=== PATIENT | female | born 1955 | race Two or more races ===

== ENCOUNTER 2018-12-03 13:28 | Emergency (ER) | payer OTHER ==
[2018-12-03 13:40] VITALS: BP 129/69; PULSE 64; TEMP 98.5; BMI 31.1
[2018-12-03] MEDS ORDERED: KETOROLAC TROMETHAMINE 60 MG/2 ML VIAL IM ONE (14:09)
--- NOTE | 2018-12-03 14:12 | PDOC ---
History of Present Illness - General Chief Complaint: Back Pain Stated Complaint: BACK PAIN Time Seen by Provider: 12/03/18 14:02 - History of Present Illness Initial Comments: 12/03/18 14:10 63-year-old female with lower back pain with left posterior lateral leg radiculopathy to the level of her knee without loss of bowel or bladder function or systemic symptoms 3 days. Past History - Past Medical History Allergies/Adverse Reactions: Allergies Allergy/AdvReac Type Severity Reaction Status Date / Time No Known Allergies Allergy Verified 12/03/18 14:05 Home Medications: Ambulatory Orders Cyclobenzaprine HCl [Flexeril 10 mg] 10 mg PO HS PRN #10 tablet 12/03/18 Methylprednisolone [Medrol Dose Benji] 4 mg PO ASDIR #21 tablet 12/03/18 COPD: No - Immunization History Immunization Up to Date: Yes - Suicide/Smoking/Psychosocial Hx Smoking History: Never smoked Information on smoking cessation initiated: No Hx Alcohol Use: No Drug/Substance Use Hx: No Review of Systems - Review of Systems Constitutional: No: Fever Musculoskeletal: Yes: Back Pain *Physical Exam - Vital Signs Last Vital Signs Temp Pulse Resp BP Pulse Ox 98.5 F 64 16 129/69 100 12/03/18 13:37 12/03/18 13:37 12/03/18 13:37 12/03/18 13:37 12/03/18 13:37 - Physical Exam Comments: 12/03/18 14:10 Lumbar spine skin color and temperature are normal range of motion is limited. There is a well-healed right-sided midline incision from a prior discectomy. 5 out of 5 strength in bilateral lower extremities without gross sensorimotor deficits positive straight leg raise test on the left negative on the right thighs and calves are soft and nontender. She is neurovascularly intact. Moderate Sedation - Procedure Monitoring Vital Signs: Procedure Monitoring Vital Signs Temperature 98.5 F 12/03/18 13:37 Pulse Rate 64 12/03/18 13:37 Respiratory Rate 16 12/03/18 13:37 Blood Pressure 129/69 12/03/18 13:37 O2 Sat by Pulse Oximetry (%) 100 12/03/18 13:37 *DC/Admit/Observation/Transfer Diagnosis at time of Disposition: Lumbar radiculopathy - Discharge Dispostion Disposition: HOME Condition at time of disposition: Improved Decision to Admit order: No - Prescriptions Prescriptions: Cyclobenzaprine HCl [Flexeril 10 mg] 10 mg PO HS PRN #10 tablet PRN Reason: Muscle Spasms Methylprednisolone [Medrol Dose Benji] 4 mg PO ASDIR #21 tablet - Referrals Referrals: Fabricio Mcpherson MD [Staff Physician] - - Patient Instructions Printed Discharge Instructions: Lumbar Radiculopathy, DI for Lumbar Radiculopathy Additional Instructions: Please take the steroid as directed. Do not take any anti-inflammatory such as Advil Motrin Aleve or ibuprofen while on the steroid pack. The muscle relaxers one tablet at nighttime before bed and will make you sleepy. Follow-up with spine surgery in 2-3 days for further evaluation and treatment options and return to the emergency room should symptoms worsen or go unresolved. - Post Discharge Activity
[2018-12-03] MEDS ORDERED: KETOROLAC TROMETHAMINE 60 MG/2 ML VIAL ONE (14:16)
== END 2018-12-03 14:22 | disposition home or self-care (01) ==
LOC: JERFT 13:28
PROC: 3E0233Z Introduction of Anti-inflammatory into Muscle, Percutaneous Approach (ICD-10-PCS; principal; 2018-12-03)
DX: M54.16 Radiculopathy, lumbar region (principal)
CPT/HCPCS: 99281-25

== ENCOUNTER 2018-12-05 12:02 | Emergency (ER) | payer OTHER ==
[2018-12-05 12:07] VITALS: BP 121/66; PULSE 82; TEMP 97.9; BMI 32.0
[2018-12-05 14:00] LABS: URINE APPEARANCE CLEAR; URINE BILIRUBIN NEGATIVE (<2.0 mg/dL); URINE COLOR YELLOW; URINE GLUCOSE (UA) NEGATIVE (NEGATIVE); URINE KETONE NEGATIVE (NEGATIVE); URINE LEUK ESTERASE TRACE (NEGATIVE); URINE NITRITE NEGATIVE (NEGATIVE); URINE PROTEIN NEGATIVE (NEGATIVE); URINE UROBILINOGEN NEGATIVE mg/dL (0.2-1.0)
--- NOTE | 2018-12-05 14:21 | PDOC ---
History of Present Illness - General Chief Complaint: Back Pain Stated Complaint: REVISIT, BACK PAIN Time Seen by Provider: 12/05/18 12:59 History Source: Patient - History of Present Illness Initial Comments: 12/05/18 14:28 63-year-old female complaining of lower back pain with pain radiating down to the left leg. Patient reports that in 2003 she had surgery for pinched nerve. Patient was seen in this ER 2 days ago for same complain report that the Medrol dosepak is not helping. Patient is not unable to get an orthopedic appointment until December 26. Patient denies saddle anesthesia, numbness or tingling to down to the lower extremity, incontinence of bowel and urine. Past History - Past Medical History Allergies/Adverse Reactions: Allergies Allergy/AdvReac Type Severity Reaction Status Date / Time No Known Allergies Allergy Verified 12/05/18 12:04 Home Medications: Ambulatory Orders Methylprednisolone [Medrol Dose Benji] 4 mg PO ASDIR 12/05/18 Oxycodone HCl/Acetaminophen [Percocet 5-325 mg Tablet] 1 tab PO Q6H PRN #12 tablet MDD 4 12/05/18 COPD: No - Immunization History Immunization Up to Date: Yes - Suicide/Smoking/Psychosocial Hx Smoking History: Never smoked Hx Alcohol Use: No Drug/Substance Use Hx: No Review of Systems - Review of Systems Able to Perform ROS?: Yes Is the patient limited Kinyarwanda proficient: No Constitutional: No: Symptoms Reported, See HPI, Chills, Diaphoresis, Fever, Loss of Appetite, Malaise, Night Sweats, Weakness, Weight Stable, Unintentional Wgt. Loss, Unexplained wgt Loss, Other Musculoskeletal: Yes: Back Pain *Physical Exam - Vital Signs Last Vital Signs Temp Pulse Resp BP Pulse Ox 97.9 F 82 18 121/66 98 12/05/18 12:04 12/05/18 12:04 12/05/18 12:04 12/05/18 12:04 12/05/18 12:04 - Physical Exam General Appearance: Yes: Appropriately Dressed Musculoskeletal: positive: Vertebral Tenderness (lumbar area tendernes) Moderate Sedation - Procedure Monitoring Vital Signs: Procedure Monitoring Vital Signs Temperature 97.9 F 12/05/18 12:04 Pulse Rate 82 12/05/18 12:04 Respiratory Rate 18 12/05/18 12:04 Blood Pressure 121/66 12/05/18 12:04 O2 Sat by Pulse Oximetry (%) 98 12/05/18 12:04 ED Treatment Course - RADIOLOGY Radiograph Interpretation: 12/05/18 14:32 CT lumbar spine: No definite compression fracture or subluxation are identified. L3-L4 mild right paracentral/lateral disc bulge with posterior spur formation slightly narrowly the right foramen without gross nerve root placement. L4-L5 moderate degenerative disc disease with mild disc bulge reaching the right L4 nerve root without definite impingement. L5-S1 moderate degenerative disc disease with mild mainly left paracentral lateral disc bulge reaching the left L5 nerve root without definite impingement. Correlate clinically and if needed correlation with nonemergent MRI of the lumbar spine would be more sensitive for further evaluation " *DC/Admit/Observation/Transfer Diagnosis at time of Disposition: Lumbar radiculopathy - Discharge Dispostion Disposition: HOME - Prescriptions Prescriptions: Oxycodone HCl/Acetaminophen [Percocet 5-325 mg Tablet] 1 tab PO Q6H PRN #12 tablet MDD 4 PRN Reason: Back Pain - Referrals Referrals: Adria Lombardi MD [Primary Care Provider] - Tariq Stuart MD, FAANS [Staff Physician] - 24 hours Dago Sands MD [Staff Physician] - 24 hours - Patient Instructions Printed Discharge Instructions: Low Back Pain Additional Instructions: take percocet as prescribed. take medrol dose pack as prescribed. follow up with neursurgery / orthopedic as soon as possible. - Post Discharge Activity Forms/Work/School Notes: Back to Work
[2018-12-05 14:47] LABS: EPI CELLS RARE /HPF (FEW)
== END 2018-12-05 14:43 | disposition home or self-care (01) ==
LOC: JERFT 12:02
DX: M54.16 Radiculopathy, lumbar region (principal)
CPT/HCPCS: 72131-TC; 81003; 81015; 99281-25

== ENCOUNTER 2019-04-01 14:52 | Emergency (ER) | payer OTHER ==
--- NOTE | 2019-04-01 14:59 | PDOC ---
Rapid Medical Evaluation Time Seen by Provider: 04/01/19 14:56 Medical Evaluation: Allergies Allergy/AdvReac Type Severity Reaction Status Date / Time No Known Allergies Allergy Verified 12/05/18 12:04 04/01/19 14:56 I have performed a brief in-person evaluation of this patient. The patient presents with a chief complaint of:vertigo and nausea after sitting up in bed this am, improved. No PALACIOS, visual changes, focal weakness, CP or SOB. H /o GERD Pertinent physical exam findings:stable and in NAD, non-focal I have ordered the following:labs/ekg The patient will proceed to the ED for further evaluation. Discharge Disposition - Diagnosis Dizziness - Referrals - Patient Instructions - Post Discharge Activity
[2019-04-01 15:02] VITALS: TEMP 97.7; BMI 30.8
[2019-04-01] MEDS ORDERED: MECLIZINE HCL 25 MG TABLET (FP) PO ONE (15:37)
[2019-04-01] MEDS ORDERED: SODIUM CHLORIDE 1,000 ML IV STA (15:37)
--- NOTE | 2019-04-01 15:47 | PDOC ---
Attending Attestation - Resident Resident Name: Radha Russell - ED Attending Attestation I have performed the following: I have examined & evaluated the patient, The case was reviewed & discussed with the resident, I agree w/resident's findings & plan - HPI HPI: 04/02/19 16:52 63yo F with no significant PMH presenting to ED with complaints of acute onset vertigo that started this AM, a/e movements and head turning. - Physicial Exam PE: 04/01/19 15:45 Agree with the resident's HPI and PE as documented in the electronic medical record. NAD, well appearing, PERRL, EOMI, No nystagmus, MMM, nl conjunctiva, anicteric; neck supple. lungs clear, RRR, abdomen soft nontender. RAMIREZ x4, no focal neuro deficits. No peripheral edema. normal color for ethnicity, WWP. Alert, oriented to person time and place. CN II-XII grossly intact. Strength prox and distally 5/5 throughout. Sensation grossly intact to light touch. RAMIREZ x4. No cerebellar signs, no dysmetria, bilateral finger to nose and heel to dill equal and symmetric. Speech clear. 04/01/19 15:56 - Medical Decision Making 04/01/19 15:45 See HPI for details Vital signs reviewed, wnl. DDX: vertigo, peripheral vs central vertigo, BPPV, labrynthitis, dehydration, electrolyte derangements. Prior notes reviewed, including admissions, discharges and consultations. laboratory results and imaging reviewed, basic labs and lytes wnl Cardiac panel_neg trop, unlikely cardiac etiology EKG sinus bradycardia at 49 bpm, no interval abnormalities, narrow QRS, ST and T wave segments and morphology normal. ED course - no imaging indicated. no deficits, no cerebellar findings, no ataxia. acutely sx with active vertigo, trial of meclizine, reassess. adrian maneuver. feels better anticipate discharge, neuro followup as outpatient, adrian and prn meclizine. 04/01/19 16:33 04/02/19 16:52 Heart Score/ECG Review #1 ECG reviewed & interpreted by me at: 16:20 General ECG Interpretation: Sinus Rhythm, Normal Intervals 04/01/19 16:34 The patient was seen and evaluated in conjunction with midlevel provider under my direct supervision, ancillary studies were reviewed. I agree with the plan as outlined NICHOLAS Gomes. HPI, workup/dispo as outlined. VS reviewed, wnl.
[2019-04-01] MEDS ORDERED: MECLIZINE HCL 25 MG TABLET (FP) ONE (15:53)
[2019-04-01 16:06] LABS: BASO % 0.9 % (0-2.0); EOS % 0.8 % (0-4.5); HEMATOCRIT 37.1 % (32.4-45.2); HEMOGLOBIN 12.3 GM/dL (10.7-15.3); LYMPH % 52.4 % (8-40); MCH 32.6 pg (25.7-33.7); MCHC 33.3 g/dl (32.0-36.0); MEAN CELL VOLUME 97.8 fl (80-96); MEAN PLT VOLUME 9.3 fl (7.5-11.1); MONO % 8.9 % (3.8-10.2); PLATELET COUNT 199 K/MM3 (134-434); RBC 3.79 M/mm3 (3.60-5.2); RDW 13.3 % (11.6-15.6); WHITE BLOOD COUNT 5.2 K/mm3 (4.0-10.0)
[2019-04-01 16:46] LABS: ALBUMIN 3.5 g/dl (3.4-5.0); ALK PHOS 45 U/L (45-117); ANION GAP 5 MMOL/L (8-16); BILIRUBIN,TOTAL 0.3 mg/dL (0.2-1); BLOOD UREA NITROGEN 13 mg/dL (7-18); CALCIUM 8.9 mg/dL (8.5-10.1); CHLORIDE 108 mmol/L (98-107); CO2 29 mmol/L (21-32); CREATININE 0.7 mg/dL (0.55-1.3); GLUCOSE,RANDOM 111 mg/dL (74-106); POTASSIUM 4.3 mmol/L (3.5-5.1); SGOT/AST 16 U/L (15-37); SGPT/ALT 22 U/L (13-61); SODIUM 142 mmol/L (136-145); TOT PROT 6.5 g/dl (6.4-8.2)
--- NOTE | 2019-04-01 16:50 | PDOC ---
History of Present Illness - General Chief Complaint: Lightheaded Stated Complaint: Dizziness Time Seen by Provider: 04/01/19 14:56 History Source: Patient Exam Limitations: No Limitations - History of Present Illness Initial Comments: 04/01/19 16:41 Pt is a 63yo F with no significant PMH presenting to ED with complaints of vertigo that started this AM. Vertigo is worsened by sitting up and changing positions, associated with nausea. She feels fine when she is sitting but the dizziness returns when she sits up or lays back down. Has never had symptoms like this before. Denies headache, eye pain, chest pain, sob, weakness, numbness /tingling, ataxia, tinnitus, syncope, recent illnesses, abdominal pain, vomiting , diarrhea. PMD: [place] PMH: none PSH: hysterectomy, Meds: none Allergies: nkda Past History - Past Medical History Allergies/Adverse Reactions: Allergies Allergy/AdvReac Type Severity Reaction Status Date / Time No Known Allergies Allergy Verified 04/01/19 16:01 Home Medications: Ambulatory Orders Methylprednisolone [Medrol Dose Benji] 4 mg PO ASDIR 12/05/18 Oxycodone HCl/Acetaminophen [Percocet 5-325 mg Tablet] 1 tab PO Q6H PRN #12 tablet MDD 4 12/05/18 Meclizine HCl [Antivert -] 25 mg PO DAILY #7 tablet 04/01/19 COPD: No - Immunization History Immunization Up to Date: Yes - Suicide/Smoking/Psychosocial Hx Smoking History: Unknown if ever smoked Hx Alcohol Use: No Drug/Substance Use Hx: No Review of Systems - Review of Systems Constitutional: No: Chills, Diaphoresis, Fever, Weakness HEENTM: No: Eye Pain, Blurred Vision, Nose Congestion, Tinnitus, Throat Pain Respiratory: No: Cough, Shortness of Breath Cardiac (ROS): No: Chest Pain, Lightheadedness, Palpitations, Syncope ABD/GI: Yes: See HPI, Nausea. No: Constipated, Diarrhea, Vomiting : No: Burning, Dysuria Musculoskeletal: No: Back Pain, Joint Pain, Neck Pain Integumentary: No: Symptoms Reported Neurological: Yes: Dizziness. No: Headache, Numbness, Tingling, Tremors, Weakness *Physical Exam - Vital Signs Last Vital Signs Temp Pulse Resp BP Pulse Ox 97.7 F 66 20 142/89 99 04/01/19 14:57 04/01/19 14:57 04/01/19 14:57 04/01/19 14:57 04/01/19 14:57 - Physical Exam General Appearance: Yes: Nourished, Appropriately Dressed. No: Apparent Distress HEENT: positive: EOMI, SHAHLA, Normal ENT Inspection, Pharynx Normal Neck: positive: Trachea midline, Supple. negative: Carotid bruit, Lymphadenopathy (R), Lymphadenopathy (L) Respiratory/Chest: positive: Lungs Clear, Normal Breath Sounds Cardiovascular: positive: Regular Rhythm, Regular Rate, S1, S2. negative: Edema , JVD, Murmur Vascular Pulses: Carotid (R): 2+, Carotid (L): 2+, Dorsalis-Pedis (R): 2+, Doralis-Pedis (L): 2+ Gastrointestinal/Abdominal: positive: Normal Bowel Sounds, Soft Musculoskeletal: negative: CVA Tenderness Extremity: positive: Normal Capillary Refill Integumentary: positive: Normal Color, Dry, Warm Neurologic: positive: thermometer tester II-XII NML intact, Fully Oriented, Alert, Normal Mood/ Affect, Normal Response, Motor Strength 5/5, Finger to Nose ED Treatment Course - LABORATORY CBC & Chemistry Diagram: 04/01/19 15:53 04/01/19 15:53 - ADDITIONAL ORDERS Additional order review: Laboratory Results 04/01/19 15:53 Troponin I < 0.02 04/01/19 15:53 RBC 3.79 MCV 97.8 H MCHC 33.3 RDW 13.3 MPV 9.3 Neutrophils % 37.0 L Lymphocytes % 52.4 H Monocytes % 8.9 Eosinophils % 0.8 Basophils % 0.9 - Medications Given in the ED: ED Medications Discontinued Medications Generic Name Dose Route Start Last Admin Trade Name Freq PRN Reason Stop Dose Admin Sodium Chloride 1,000 mls @ 1,000 mls/hr 04/01/19 15:37 04/01/19 16:00 Normal Saline - IV 04/01/19 16:36 1,000 mls/hr ASDIR STA Administration Meclizine HCl 25 mg 04/01/19 15:37 04/01/19 16:00 Antivert - PO 04/01/19 15:38 25 mg ONCE ONE Administration Medical Decision Making - Medical Decision Making 04/01/19 16:50 Pt is a 63yo F with no significant PMH presenting to ED with complaints of vertigo that started this AM. Vertigo is worsened by sitting up and changing positions, associated with nausea. She feels fine when she is sitting but the dizziness returns when she sits up or lays back down. Has never had symptoms like this before. Denies headache, eye pain, chest pain, sob, weakness, numbness /tingling, ataxia, tinnitus, syncope, recent illnesses, abdominal pain, vomiting , diarrhea. Vitals: wnl PE: dizziness induced by positional changes. no nystagmus, normal neurological exam Ddx includes but not limited to peripheral vertigo, central vertigo, acs, electrolyte/metabolic disturbance -labs, trop -ekg -fluids, meclizine Enrico maneuver attempted. Pt states feeling slightly better afterward cbc wnl, trop negative ekg: sinus bradycardia at 49, no leticia or depressions. NH 184, QTc 401. TWI V3 04/01/19 16:55 labs wnl. will reassess. pt feeling better, no lab or ekg abnormalities. safe for dc home. given rx for meclizine and neuro fu. pt understands and agrees with plan. given dc instructions and return precautions. *DC/Admit/Observation/Transfer Diagnosis at time of Disposition: Dizziness Peripheral vertigo Qualifiers: Laterality: left Qualified Code(s): H81.392 - Other peripheral vertigo, left ear - Discharge Dispostion Disposition: HOME Condition at time of disposition: Improved Decision to Admit order: No - Prescriptions Prescriptions: Meclizine HCl [Antivert -] 25 mg PO DAILY #7 tablet - Referrals Referrals: Adria Lombardi MD [Primary Care Provider] - Fabricio Monroy MD [Staff Physician] - - Patient Instructions Printed Discharge Instructions: DI for Vertigo Additional Instructions: Te vieron en la carol de emergencias por mareos. [place] es lo ms probable vrtigo. Se envi a galindo farmacia emily receta para un medicamento llamado meclizine. Por favor tome segn las indicaciones. Tambin puedes hacer la maniobra de Enrico: Comience por sentarse en emily cama. Gira tu devin 45 grados a la izquierda. Rpidamente recustate, manteniendo la devin vuelta. Judy hombros deben estar ahora sobre la almohada y galindo devin debe estar reclinada. Espera 30 segundos. Gira tu devin 90 grados hacia la derecha, sin levantarla. Tu devin ahora estar mirando 45 grados a la derecha. Espera otros 30 segundos. Gira tu devin y tu cuerpo 90 grados ms hacia la derecha, hacia la cama. Espera otros 30 segundos. Sintate en el lado derecho. Recomiendo seguir con un neurlogo. La informacin se proporciona a continuacin. Regrese a la carol de emergencias si el mareo empeora, se desmaya, no puede caminar o si aparece algn sntoma nuevo. You were seen in the emergency room for dizziness. This is most likely vertigo. A prescription for a medication called meclizine was sent to your pharmacy. Please take as directed. You can also do the Enrico Maneuver: Start by sitting on a bed. Turn your head 45 degrees to the left. Quickly lie back, keeping your head turned. Your shoulders should now be on the pillow, and your head should be reclined. Wait 30 seconds. Turn your head 90 degrees to the right, without raising it. Your head will now be looking 45 degrees to the right. Wait another 30 seconds. Turn your head and body another 90 degrees to the right, into the bed. Wait another 30 seconds. Sit up on the right side. I recommend following up with a neurologist. Information is provided below. Come back to the emergency room if dizziness worsens, you pass out, you are unable to walk or if any new concerning symptom develops. Thank you Print Language: URDU - Post Discharge Activity
[2019-04-01 18:09] VITALS: BP 122/65; PULSE 53
--- NOTE | 2019-04-02 13:39 | EKG ---
Test Reason : Blood Pressure : / mmHG Vent. Rate : 049 BPM Atrial Rate : 049 BPM P-R Int : 184 ms QRS Dur : 084 ms QT Int : 444 ms P-R-T Axes : 070 055 063 degrees QTc Int : 401 ms SINUS BRADYCARDIA NONSPECIFIC T WAVE ABNORMALITY ABNORMAL ECG NO PREVIOUS ECGS AVAILABLE Confirmed by AURA SHOOK, LUCHO ([id number]) on 04/02/2019 1:39:00 PM Referred By: Confirmed By:LUCHO CHAVARRIA MD
== END 2019-04-01 18:08 | disposition home or self-care (01) ==
LOC: JER 14:52
PROC: 3E0337Z Introduction of Electrolytic and Water Balance Substance into Peripheral Vein, Percutaneous Approach (ICD-10-PCS; principal; 2019-04-01)
DX: H81.392 Other peripheral vertigo, left ear (principal)
CPT/HCPCS: 36415; 80053; 84484; 85025; 93005; 93010; 96360; 99283-25; J7030

== ENCOUNTER 2021-07-28 08:17 | Emergency (ER) | payer OTHER ==
[2021-07-28 08:36] VITALS: BP 129/74; PULSE 64; TEMP 98.2; BMI 26.6
[2021-07-28] MEDS ORDERED: NAPROXEN 500 MG TABLET PO ONE (09:23)
[2021-07-28] MEDS ORDERED: METHOCARBAMOL 500 MG TABLET PO ONE (09:23)
[2021-07-28] MEDS ORDERED: NAPROXEN 500 MG TABLET ONE (09:30)
[2021-07-28] MEDS ORDERED: METHOCARBAMOL 500 MG TABLET ONE (09:31)
== END 2021-07-28 10:35 | disposition home or self-care (01) ==
LOC: JER 08:17
DX: M62.830 Muscle spasm of back (principal); M54.16 Radiculopathy, lumbar region
CPT/HCPCS: 72100-TC-FY; 99284-25

== ENCOUNTER 2021-12-05 10:15 | Emergency (ER) | payer OTHER ==
[2021-12-05 10:44] VITALS: TEMP 98.1; BMI 28.5
[2021-12-05] MEDS ORDERED: ACETAMINOPHEN 1000 MG/100 ML BAG IVPB ONE (10:54)
[2021-12-05] MEDS ORDERED: ACETAMINOPHEN INJECTION 100 ML IVPB ONE (11:00)
[2021-12-05 11:18] LABS: BASO % 0.5 % (0-2.0); EOS % 0.3 % (0-4.5); HEMATOCRIT 35.9 % (32.4-45.2); LYMPH % 26.9 % (8-40); MCH 31.7 pg (25.7-33.7); MCHC 33.5 g/dl (32.0-36.0); MEAN CELL VOLUME 94.7 fl (80-96); MEAN PLT VOLUME 8.1 fl (7.5-11.1); NEUT % 65.3 % (42.8-82.8); PLATELET COUNT 285 10^3/uL (134-434); RBC 3.79 M/mm3 (3.60-5.2); WHITE BLOOD COUNT 6.8 K/mm3 (4.0-10.0)
[2021-12-05] MEDS ORDERED: LIDOCAINE 5% TOPICAL PATCH TP ONE (11:32)
[2021-12-05] MEDS ORDERED: diazePAM 2 MG TABLET PO ONE (11:32)
[2021-12-05 11:41] LABS: CHLORIDE 104 mmol/L (98-107); SODIUM 139 mmol/L (136-145)
[2021-12-05 11:43] LABS: ALBUMIN 3.5 g/dl (3.4-5.0); ANION GAP 4 MMOL/L (8-16); BLOOD UREA NITROGEN 15.1 mg/dL (7-18); CALCIUM 9.5 mg/dL (8.5-10.1); CO2 31 mmol/L (21-32)
[2021-12-05 11:44] LABS: GLUCOSE,RANDOM 96 mg/dL (74-106)
[2021-12-05 11:46] LABS: CREATININE 0.6 mg/dL (0.55-1.3)
[2021-12-05 11:47] LABS: SGOT/AST 16 U/L (15-37); SGPT/ALT 25 U/L (13-61)
[2021-12-05 11:48] LABS: BILIRUBIN,TOTAL 0.3 mg/dL (0.2-1)
[2021-12-05 11:49] LABS: ALK PHOS 79 U/L (45-117)
[2021-12-05] MEDS ORDERED: diazePAM 2 MG TABLET ONE (11:59)
[2021-12-05] MEDS ORDERED: LIDOCAINE 5% TOPICAL PATCH ONE (11:59)
[2021-12-05 15:31] VITALS: BP 106/64; PULSE 71
[2021-12-05] MEDS ORDERED: LIDOCAINE PATCH REMOVAL MC ONE (22:00)
== END 2021-12-05 16:00 | disposition home or self-care (01) ==
LOC: JER 10:15
PROC: 3E033NZ Introduction of Analgesics, Hypnotics, Sedatives into Peripheral Vein, Percutaneous Approach (ICD-10-PCS; principal; 2021-12-05)
DX: R55 Syncope and collapse (principal); M54.16 Radiculopathy, lumbar region
CPT/HCPCS: 36415; 70450-TC; 72131-TC; 80053; 82550; 84484; 85025; 93005; 93010; 99285-25; C9803; J0131; U0003; U0005

== ENCOUNTER 2022-06-06 11:59 | Emergency (ER) | payer OTHER ==
[2022-06-06 12:27] VITALS: BMI 29.7
[2022-06-06] MEDS ORDERED: ACETAMINOPHEN 1000 MG/100 ML BAG IVPB ONE (12:55)
[2022-06-06] MEDS ORDERED: LACTATED RINGERS SOLUTION 1000 ML INFUS.BAG IV ONE (12:55)
[2022-06-06] MEDS ORDERED: MECLIZINE HCL 25 MG TABLET (FP) PO ONE (12:56)
[2022-06-06] MEDS ORDERED: ACETAMINOPHEN INJECTION 100 ML IVPB ONE (13:03)
[2022-06-06 13:15] VITALS: BP 132/72; PULSE 71
[2022-06-06 13:17] LABS: BASO % 0.5 % (0-2.0); EOS % 0.6 % (0-4.5); HEMATOCRIT 37.1 % (32.4-45.2); HEMOGLOBIN 12.6 GM/dL (10.7-15.3); LYMPH % 9.4 % (8-40); MCH 32.3 pg (25.7-33.7); MEAN PLT VOLUME 9.1 fl (7.5-11.1); MONO % 7.6 % (3.8-10.2); NEUT % 81.9 % (42.8-82.8); PLATELET COUNT 180 10^3/uL (134-434); RBC 3.91 M/mm3 (3.60-5.2); RDW 13.6 % (11.6-15.6); WHITE BLOOD COUNT 5.2 K/mm3 (4.0-10.0)
[2022-06-06] MEDS ORDERED: MECLIZINE HCL 25 MG TABLET (FP) ONE (13:21)
[2022-06-06 13:53] LABS: CALCIUM 9.2 mg/dL (8.5-10.1)
[2022-06-06 13:54] LABS: ALBUMIN 3.7 g/dl (3.4-5.0); BLOOD UREA NITROGEN 7.9 mg/dL (7-18)
[2022-06-06 13:57] LABS: CREATININE 0.8 mg/dL (0.55-1.3)
[2022-06-06 13:59] LABS: BILIRUBIN,TOTAL 0.4 mg/dL (0.2-1)
[2022-06-06 14:18] VITALS: TEMP 99.7
== END 2022-06-06 15:13 | disposition home or self-care (01) ==
LOC: JER 11:59
PROC: 3E033GC Introduction of Other Therapeutic Substance into Peripheral Vein, Percutaneous Approach (ICD-10-PCS; principal; 2022-06-06)
DX: U07.1 COVID-19 (principal)
CPT/HCPCS: 0241U-QW; 36415; 71045-TC-FY; 80053; 84484; 85025; 93005; 93010; 96374; 99285-25